=== PATIENT | male | born 1955 | race Asian ===

== ENCOUNTER 2020-03-28 20:07 | Emergency (ER) | payer BC ==
[~2020-03-28] VITALS: Ht 172.7 cm; Wt 74.8 kg
[2020-03-28 20:19] VITALS: Ht 172.7 cm; Wt 74.8 kg
[2020-03-28 21:30] LABS: BASOPHIL % 0.5 % (0.2-1.5); PLATELET COUNT 238 x10^3mcL (152-348)
[2020-03-28 21:32] LABS: RED CELL DISTRIBUTION WIDTH 16.5 % (12.1-16.2)
[2020-03-28 21:39] LABS: CALCIUM 9.1 mg/dL (8.5-10.1); CARBON DIOXIDE 30.4 mmol/L (21-32); CHLORIDE SERUM 107 mmol/L (98-107); CREATININE SERUM 1.2 mg/dL (0.7-1.3); GFR1 > 60 mL/min; GLUCOSE SERUM 116 mg/dL (74-106); POTASSIUM SERUM 3.9 mmol/L (3.5-5.1); SODIUM SERUM 146 mmol/L (136-145)
[2020-03-28 21:43] LABS: ALBUMIN 4.4 g/dL (3.4-5.0); ALKALINE PHOSPHATASE 98 U/L (46-116); ALT/SGPT 44 U/L (16-63); AST/SGOT 23 U/L (15-37); BILIRUBIN TOTAL 0.6 mg/dL (0.20-1.00); TOTAL PROTEIN, SERUM 7.9 g/dL (6.4-8.2)
[2020-03-29 01:28] VITALS: BP 145/93
== END 2020-03-29 01:28 | disposition home or self-care (01) ==
LOC: EDSEX 20:07 → ED 20:07
PROVIDERS: Student in an Organized Health Care Education/Training Program
DX: R07.89 Other chest pain (principal); I10 Essential (primary) hypertension; Z85.850 Personal history of malignant neoplasm of thyroid; Z85.118 Personal history of other malignant neoplasm of bronchus and lung; Z85.528 Personal history of other malignant neoplasm of kidney
CPT/HCPCS: 83880; 85378